=== PATIENT | female | born 1980 | race Caucasian/White ===

== ENCOUNTER 2016-12-28 22:07 | Emergency (ER) | payer OTHER ==
[~2016-12-28 22:07] MED LIST: CATAPRES0.3 MG PO; CLEOCIN150 MG DOB; COUMADIN PO; FIORICET W/CODE1 CAP PO; IBUPROFEN PO; IMITREX; MOTRIN600 MG PO; NEURONTIN600 MG PO; PHENERGAN PO; PHENERGAN25 MG PO
== END 2016-12-29 02:05 | disposition left against medical advice (07) ==
LOC: CED 22:07
DX: Z53.21 Procedure and treatment not carried out due to patient leaving prior to being seen by health care provider (principal)

== ENCOUNTER 2017-02-25 20:01 | Inpatient (IN) | payer OTHER ==
[~2017-02-25] VITALS: Ht 152.4 cm; Wt 45.4 kg
--- NOTE | ~2017-02-25 | HP ---
Unit #: [id number] #: [id number] Patient: NIC LEON [id number] [place] [address] [id number] MR#: [id number] NAME: NIC LEON ROOM: P175 Age: 36 Sex: F Admission Date: 02/25/2017 : 1980 Attending Physician: Jeffery Dorsey M.D. Admitting Physician: Jeffery Dorsey M.D. Primary Care Physician: Chasidy Orlando [facility] HISTORY AND PHYSICAL HISTORY OF PRESENT ILLNESS Nic is a 36 year old admitted to [facility] because of her continued illicit substance abuse. She has had other admissions to this facility for the same. PAST MEDICAL HISTORY 1. Long history of illicit substance abuse. 2. History of DVT, 2004. PAST SURGICAL HISTORY 1. . 2. Appendectomy. ALLERGIES Penicillin. SOCIAL HISTORY He smokes 1 pack per day. Drinks alcohol rarely. Admits to a long history of illicit substance abuse to include IV heroin, methamphetamine and benzodiazepine. FAMILY HISTORY Medically noncontributory. REVIEW OF SYSTEMS CONSTITUTIONAL: No fever or chills. HEENT: Denies any sore throat, ear pain or runny nose. CARDIOVASCULAR: Denies chest pain, irregular heart rhythm or palpitations. CHEST: Denies shortness of breath or cough. No hemoptysis. GASTROINTESTINAL: Denies nausea, vomiting, diarrhea or chronic constipation. ENDOCRINE: Denies history of increased thirst or urination. No recent significant weight loss or gain. GENITOURINARY: Denies dysuria, frequency, or hematuria. SKIN: Denies any rashes. HEMATOLOGIC: Denies history of increased bleeding or bruising. MUSCULOSKELETAL: Denies any hot, swollen joints. No generalized muscle pain. NEUROLOGIC: Denies problems with vision or speech. No frequent, severe headaches. No numbness, tingling or weakness in any extremities. Denies loss of bladder or bowel control. CURRENT MEDICATIONS Unit #: [id number] #: [id number] Patient: NIC LEON Detox protocol. PHYSICAL EXAMINATION GENERAL: Alert, well-nourished, in no apparent distress. VITAL SIGNS: Blood pressure 100/62, heart rate 80, respirations 16, temperature 98.6. WEIGHT: 100. HEIGHT: 5 feet 0 inches. SKIN: Warm and dry without rash or lesion. HEENT: Normocephalic. TMs not viewed. Oral and nasal passages clear. Conjunctivae clear. PERRLA. EOMs intact. NECK: Supple without lymphadenopathy or thyromegaly. HEART: Regular rate and rhythm without murmur. LUNGS: Clear. ABDOMEN: Soft, nontender. : Not done. EXTREMITIES: No evidence of cyanosis, clubbing or edema. Moves all without focal deficit. NEUROLOGICAL: Grossly within normal limits. Cranial Nerves: II: Visual salvador are intact. III, IV AND : Extraocular movements are intact. Pupils are equal, round and reactive to light. V: Facial sensation is grossly normal. VII: Facial movements and expression are normal. VIII: Auditory acuity grossly intact. IX, X: Uvula is midline. Phonation is normal. XI: Patient shrugs shoulders and turns head normally. XII: Tongue protrudes in the midline. Sensory and Motor Function: Sensory and motor sensation is grossly normal. Motor: moves all extremities well. Coordination: Gait is normal. Deep Tendon Reflexes: Intact. IMPRESSION Psychiatric admission. RECOMMENDATIONS PSYCHIATRIC: Per psychiatrist. MEDICAL: See no contraindication to participate in facility's activities. MEDICAL PROGNOSIS Good. MEDICAL CONDITION Stable. Dictated by... Pratibha Conrad P.A.-C. for Malou Avalos/zenon TD: 02/26/2017 22:28 JOB #: [id number] Unit #: [id number] #: [id number] Patient: NIC LEON HISTORY AND PHYSICAL Page 1 of 1 X Pratibha Conrad X HISTORY AND PHYSICAL
--- NOTE | ~2017-02-25 | PA ---
Unit #: [id number] #: [id number] Patient: NIC SIMENTAL [id number] [facility] [address] [place] [address] [id number] I MR#: [id number] NAME: NIC SIMENTAL ROOM: P175 Age: 36 Sex: F Admission Date: 02/25/2017 : 1980 Date of Assessment: Attending Physician: Jeffery Dorsey M.D. Admitting Physician: Jeffery Dorsey M.D. Primary Care Physician: Chasidy Orlando [facility] PSYCHIATRIC ASSESSMENT DATE OF SERVICE 02/26/2017. IDENTIFYING DATA Ms. Simental is a 36-year-old white female, who is a resident of [place], [place], and is known to us from previous encounter and was self-referred to the hospital on a voluntary basis. CHIEF COMPLAINT "I can't quit using." HISTORY OF PRESENT ILLNESS Ms. Tsai is a 36-year-old white female with a long history of substance abuse and dependence, who is known to me from previous encounter, and was seen last week and referred to the outpatient program; however, she no showed up for the outpatient program and kept on using and now brought herself to the hospital stating "I can't quit using this, you had to be clean and sober. I can't detox on my own. I'm feeling so hopeless. My in July, he overdosed. It is time for me to quit. There is no transportation for night classes. I would wake up and be dope sick so I would not go, I keep trying to quit and cannot. My mom told me to quit using or I had to find somewhere else to live and I do not know anywhere else to go. My 's birthday passed and it has been really hard on the kids." She reports she has 3 kids, who are currently with patient's . The patient does endorse increasing depression, anxiety, irritability, restlessness, feelings of hopelessness and helplessness and suicidal ideations, and has history of suicidal ideations in the past as well and reports having suicidal ideations with a plan to overdose on pills and that is the last chance. If she has to keep living like this, she will kill herself. As such, recommendation for an inpatient level of care for safety and stabilization was made. The patient was transferred to us. SUBSTANCE ABUSE HISTORY The patient has an extensive history of substance abuse and dependence including alcohol, cannabis, cocaine, opioids, amphetamines, benzodiazepines, and spice, and currently heroin has been her drug of choice as she reports that she has been using up to 2 g of IV heroin on a daily basis and has been mixing it with methamphetamine as well and cocaine, which she did use last week. PAST PSYCHIATRIC HISTORY The patient has had a history of multiple inpatient psychiatric Unit #: [id number] #: [id number] Patient: NIC SIMENTAL hospitalizations at [facility] in addition to being at [facility], and has a history of mood disorder, substance abuse and dependence. Review of the medical records indicate that currently she is not active in any treatment program, is not seeing a psychiatrist, and is not taking any psychotropic medications. PAST MEDICAL HISTORY No acute or chronic medical illnesses. ALLERGIES Penicillin. CURRENT MEDICATIONS None. PERSONAL AND SOCIAL HISTORY A 36-year-old white female, who reports that she is and single and unemployed and lives with her parents and has 3 children, who are currently with the patient's in-laws. MENTAL STATUS EXAMINATION Young white female, who was casually dressed with a fair personal hygiene and appears to be in no acute distress or discomfort. She was awake and alert on interaction with intact orientation to time, place, and person. Her mood was anxious and depressed with a congruent affect. Her speech is slow and restricted in content. Her thought processes were disorganized with some looseness of associations and flight of ideas and suicidal ideations. Her insight and judgment remain significantly impaired. DIAGNOSTIC IMPRESSION Psychiatric: Major depressive disorder, recurrent, moderate, without psychotic features. Opioid dependence, moderate, in acute withdrawals. Methamphetamine dependence, moderate. Cocaine dependence, moderate. Medical: None. Stressors: Moderate psychosocial stressors. TREATMENT PLAN 1. The patient has presented with a history of substance abuse and mood disorder, and has been decompensating and will need inpatient hospitalization for safety and stabilization. We will start her on home medications, and detox protocol will be initiated as well. 2. Supportive therapy was provided to the patient. 3. Safe, structured, and nourishing environment will be provided. ESTIMATED LENGTH OF STAY 5 to 7 days. ABILITY TO HELP SELF Limited. WILLINGNESS TO HELP SELF The patient appears to be willing to help self. STRENGTHS 1. Communicative. 2. Cooperative. Unit #: [id number] #: [id number] Patient: NIC SIMENTAL PROBLEMS 1. Chronic dysphoric symptoms. 2. Chronic chemical dependency. 3. Poor social support system. DISCHARGE CRITERIA This will be contingent upon the patient's ability to show resolution of her depression and anxiety and her ability to stay safe to herself, particularly after discharge from the hospital. Dictated by... Jeffery Dorsey M.D. ROWENA/sergey TD: 02/26/2017 06:51 JOB #: [id number] PSYCHIATRIC ASSESSMENT Page 1 of 1 X Jeffery Dorsey MD X PSYCHIATRIC ASSESSMENT
--- NOTE | ~2017-02-25 | PN ---
Unit #: [id number] #: [id number] Patient: NIC LEON [id number] [facility] [address] [place] [address] [id number] I MR#: [id number] NAME: NIC LEON ROOM: [facility] Age: 36 Sex: F Admission Date: 02/25/2017 : 1980 Attending Physician: Jeffery Dorsey M.D. Admitting Physician: Jeffery Dorsey M.D. Primary Care Phys[facility] PRO[facility]ESS NOTES DATE OF SERVICE 02/27/2017 DISCUSSION Ms. Mckeon is a 36-year-old white female with substance abuse and mood disorder who was seen today. Chart was reviewed and case was discussed with the staff. She has been anxious, withdrawn, and rather seclusive to herself, appears to be in distress or discomfort as she was lying in her bed and reports not feeling good and going through acute detox. She has been taking the medications and tolerating them fairly well with no reported side effects. MENTAL STATUS EXAMINATION Young white female who is casually dressed with fair personal hygiene, appears to be in no acute distress or discomfort. She was awake and alert on interaction with intact orientation. Her mood is anxious with congruent affect. Speech is slow and goal-directed. She denies any suicidal or homicidal ideations and also denies any auditory or visual hallucinations. Her insight and judgment remain slightly impaired. TREATMENT PLAN 1. We will continue her on her current medications and treatment protocol. We will monitor her response to the medications and make further adjustments as needed. 2. We will continue to follow up. Dictated by... Malou Dong/lissy TD: 02/27/2017 08:41 JOB #: [id number] Unit #: [id number] #: [id number] Patient: NIC LEON PROGRESS NOTES Page 1 of 1 X Jeffery Dorsey MD PROGRESS NOTE
--- NOTE | ~2017-02-25 | DS ---
Unit #: [id number] #: [id number] [facility] [id number] [facility] [address] [place] [address] [id number] I MR#: [id number] NAME: NIC SIMENTAL ROOM: [facility] Age: 36 Sex: F Admission Date: 02/25/2017 : 1980 Discharge Date: 03/03/2017 Attending Physician: Jeffery Dorsey M.D. Primary Care Physician: Chasidy Orlando [facility] DISCHARGE SUMMARY IDENTIFYING DATA Ms. Simental is a 36-year-old white female with history of mood disorder and substance abuse who is very well to me from a previous encounter and was self-referred to the hospital . DISCHARGE DIAGNOSES Psychiatric: Opioid dependence, moderate, in acute withdrawals, history of mood disorder. Medical: None. Stressors: Moderate psychosocial stressors. HISTORY OF PRESENT ILLNESS Please see initial psychiatric evaluation for details. PAST PSYCHIATRIC HISTORY Please see initial psychiatric evaluation for details. PAST MEDICAL HISTORY Please see initial psychiatric evaluation for details. HOSPITAL COURSE The patient was admitted to the adult chemical dependency unit at [facility] deven [facility] and was oriented to the hospital environment. Routine p.r.n. medications were initiated and she was started back on her home medications and opioid detox protocol was initiated and she was closely monitored. She was taking the medications regularly and was tolerating them fairly well and was able to show a decent and therapeutic response and was able to come out of the detox without any complications and was wanting continue treatment on an outpatient basis. She was denying any suicidal ideation, intent, or plan outpatient basis. DISCHARGE MEDICATIONS None. DISCHARGE CONDITION Stable. PROGNOSIS Fair. Dictated by... Jeffery Dorsey M.D. Unit #: [id number] #: [id number] Patient: NIC SIMENTAL IAA/modl TD: 03/12/2017 17:11 JOB #: [id number] DISCHARGE SUMMARY Page 1 of 1 X Jeffery Dorsey MD X DISCHARGE SUMMARY
--- NOTE | ~2017-02-25 | PN ---
Unit #: [id number] #: [id number] Patient: NIC SIMENTAL [id number] [facility] [address] [place] [address] [id number] I MR#: [id number] NAME: NIC SIMENTAL ROOM: [facility] Age: 36 Sex: F Admission Date: 02/25/2017 : 1980 Attending Physician: Jeffery Dorsey M.D. Admitting Physician: Jeffery Dorsey M.D. [facility] PROGRESS NOTES DATE March 02, 2017 DISCUSSION Ms. Simental is a 36-year-old white female, who was seen today and chart was reviewed and the case was discussed with the staff. She appears to be doing much better and has been calm and cooperative and has been compliant with the treatment recommendations and she has been taking the medications and tolerating them fairly well. MENTAL STATUS EXAMINATION Young white female, who was casually dressed with fair personal hygiene and appears to be in no acute distress or discomfort. She was awake and alert on interaction with intact orientation. Her mood was anxious with a congruent affect. The patient denies any suicidal or homicidal ideations. Her insight and judgment remain slightly impaired. TREATMENT PLAN 1. We will continue her on her current medications and treatment protocol, and will monitor her response to the medications, and make further adjustments as needed. 2. We will continue to followup. Dictated by... Malou Dong/hien TD: 03/03/2017 12:48 JOB #: [id number] Unit #: [id number] #: [id number] Patient: NIC SIMENTAL PROGRESS NOTES Page 1 of 1 X Jeffery Dorsey MD X PROGRESS NOTE
--- NOTE | ~2017-02-25 | PN ---
Unit #: [id number] #: [id number] Patient: NIC SIMENTAL [id number] [facility] [address] [place] [address] [id number] I MR#: [id number] NAME: NIC SIMENTAL ROOM: [facility] Age: 36 Sex: F Admission Date: 02/25/2017 : 1980 Attending Physician: Jeffery Dorsey M.D. Admitting Physician: Jeffery Dorsey M.D. Primary Care Physician: [facility] PRO[facility] DATE OF SERVICE 02/28/2017 DISCUSSION Ms. Simental is a 36-year-old white female with substance abuse and mood disorder who was seen today. Chart was reviewed and case was discussed with the staff. She has been anxious, withdrawn, and rather seclusive to herself. Meanwhile, she has been cooperative with the treatment recommendations and has been taking the medications and tolerating them fairly well with no reported side effects. MENTAL STATUS EXAMINATION Young white female who is casually dressed with fair personal hygiene, appears to be in no acute distress or discomfort. She was awake and alert on interaction with intact orientation. Her mood is anxious with congruent affect. Her speech is slow and goal-directed. She denies any suicidal or homicidal ideations and also denies any auditory or visual hallucinations. Her insight and judgment remain slightly impaired. TREATMENT PLAN 1. We will continue her on her current medications and treatment protocol. We will monitor her response to the medications and make further adjustments as needed. 2. We will continue to follow up. Dictated by... Malou Dong/lissy TD: 02/28/2017 08:27 JOB #: [id number] Unit #: [id number] #: [id number] Patient: NIC SIMETNAL PROGRESS NOTES Page 1 of 1 X Jeffery Dorsey MD PROGRESS NOTE
--- NOTE | ~2017-02-25 | PN ---
Unit #: [id number] #: [id number] Patient: NIC SIMENTAL [id number] [facility] [address] [place] [address] [id number] I MR#: [id number] NAME: NIC SIMENTAL ROOM: [facility] Age: 36 Sex: F Admission Date: 02/25/2017 : 1980 Attending Physician: Jeffery Dorsey M.D. Admitting Physician: Jeffery Dorsey M.D. Primary Care Phys[facility] PROGRESS NOTES DATE 03/01/2017 DISCUSSION Ms. Simental is a 36-year-old white female who was seen today and chart was reviewed and case was discussed with the staff. She has been anxious, withdrawn and rather seclusive to herself. Meanwhile, she has been cooperative with treatment recommendations. She has been taking medications and tolerating them fairly well with no reported side effects. MENTAL STATUS EXAMINATION Young white female who was casually dressed with fair personal hygiene, appears to be in no acute distress or discomfort. She was awake and alert on interaction with intact orientation. Her mood was anxious with congruent affect. She denies any suicidal or homicidal ideations. Her insight and judgement remains slightly impaired. TREATMENT PLAN 1. We will continue her on her current medications and treatment protocol. We will monitor her response to the medication and make further adjustments as needed. 2. We will continue to follow up. Dictated by... Malou Dong/rosita TD: 03/03/2017 02:07 JOB #: [id number] Unit #: [id number] #: [id number] Patient: NIC SIMENTAL PROGRESS NOTES Page 1 of 1 X Jeffery Dorsey MD X PROGRESS NOTE
[2017-02-28 09:52] LABS: BASOPHIL% 0.4 % (0-2.5); EOSINOPHIL# 0.1 X10e3 (0-0.7); EOSINOPHIL% 2.3 % (0.0-7.0); HEMATOCRIT 40.3 % (35.0-45.0); HEMOGLOBIN 13.7 gm/dL (12.0-16.0); LYMPHOCYTE# 1.1 X10e3 (1.0-3.5); LYMPHOCYTE% 20.9 % (17.0-45.0); MEAN CELL VOLUME 92.1 FL (83-96); MEAN CORPUSCULAR HEMOGLOBIN 31.4 PG (28-34); MEAN CORPUSCULAR HGB CONC 34.1 g/dL (30-36); MEAN PLATELET VOLUME 7.9 FL (6.5-11.5); MONOCYTE# 0.4 X10e3 (0-1.0); MONOCYTE% 6.9 % (3.0-12.0); NEUTROPHIL# 3.7 X10e3 (1.5-7.1); NEUTROPHIL% 69.5 % (40-75); PLATELET COUNT 204 X10e3 (140-420); RED BLOOD COUNT 4.37 X10e (3.90-5.30); WHITE BLOOD COUNT 5.2 X10e3 (4.0-10.5)
[2017-02-28 09:53] LABS: DIFF IND NO
[2017-02-28 09:58] LABS: URINE APPEARANCE CLEAR; URINE BILIRUBIN NEG (NEG); URINE BLOOD NEG (NEG); URINE COLOR YELLOW; URINE GLUCOSE NEG (NEG); URINE KETONE NEG (NEG); URINE LEUKOCYTE ESTERASE NEG (NEG); URINE NITRATE NEG (NEG); URINE PROTEIN NEG (NEG); URINE SPECIFIC GRAVITY 1.018 (1.003-1.035)
[2017-02-28 10:21] LABS: AMPHETAMINE NEG (NEG); BARBITURATES NEG (NEG); BENZODIAZEPINES NEG (NEG); COCAINE NEG (NEG); MARIJUANA NEG (NEG); OPIATES POS (NEG); TRICYCLIC ANTIDEPRESSANTS NEG (NEG); U METHADONE NEG (NEG)
[2017-02-28 10:50] LABS: ALBUMIN SERUM 3.2 g/dL (3.5-5.0); BILIRUBIN,TOTAL 0.4 mg/dL (0.2-2.0); CALCIUM SERUM 8.9 mg/dL (8.4-10.2); CREATININE SERUM 0.5 mg/dL (0.6-1.4); GLOM FILT RATE Estimated 126.3 mL/min (>60); POTASSIUM 4.2 mmol/L (3.5-5.1); PROTEIN TOTAL SERUM 6.1 g/dL (6.0-8.3)
== END 2017-03-03 08:20 | DRG 885 ==
LOC: P1E 22:26
PROVIDERS: Psychiatry & Neurology Psychiatry
PROC: HZ2ZZZZ Detoxification Services for Substance Abuse Treatment (ICD-10-PCS; principal; 2017-02-25)
DX: F33.1 Major depressive disorder, recurrent, moderate (principal); F14.20 Cocaine dependence, uncomplicated; R45.851 Suicidal ideations; F11.23 Opioid dependence with withdrawal; F15.20 Other stimulant dependence, uncomplicated; Z88.0 Allergy status to penicillin; F17.200 Nicotine dependence, unspecified, uncomplicated
CPT/HCPCS: 80053; 80307; 81003; 84703; 85025; 86592

== ENCOUNTER 2017-03-05 02:18 | Emergency (ER) | payer OTHER ==
[~2017-03-05] VITALS: Ht 152.4 cm; Wt 45.4 kg
[2017-03-05 04:01] LABS: URINE SOURCE CLEAN CATCH
[2017-03-05 04:06] LABS: URINE APPEARANCE CLEAR; URINE BILIRUBIN NEG (NEG); URINE BLOOD NEG (NEG); URINE COLOR YELLOW; URINE GLUCOSE NEG (NEG); URINE KETONE NEG (NEG); URINE LEUKOCYTE ESTERASE TRACE (NEG); URINE NITRATE NEG (NEG); URINE PROTEIN NEG (NEG); URINE SPECIFIC GRAVITY 1.017 (1.003-1.035)
[2017-03-05 04:09] LABS: U HYALINE CASTS AUWI 0-2 /[LPF]; URBCS1 AUWI 0-2 /[HPF] (0-2); URINE BACTERIA AUWI NEG (NEGATIVE); URINE SQUAMOUS EPITHELIAL CELL OCC /[HPF]
[2017-03-05 04:10] LABS: CULTURE INDICATED? NO
== END 2017-03-05 05:31 | disposition home or self-care (01) ==
LOC: CED 02:18
DX: N39.0 Urinary tract infection, site not specified (principal); Z90.49 Acquired absence of other specified parts of digestive tract; Z88.0 Allergy status to penicillin; F17.210 Nicotine dependence, cigarettes, uncomplicated; Z98.890 Other specified postprocedural states
CPT/HCPCS: 81003; 84703; 99283